=== PATIENT | male | born 1980 | race Caucasian/White ===

== ENCOUNTER 2019-01-09 22:31 | Emergency (ER) | payer BC ==
[~2019-01-09] VITALS: Ht 177.8 cm; Wt 90.7 kg
[2019-01-10] MEDS ORDERED: SILVER SULFADIAZINE 1% CREAM 50 GM TP ONE (00:30)
--- NOTE | 2019-01-10 00:30 | NUR ---
DR. COVARRUBIAS AT [facility].
--- NOTE | 2019-01-10 00:39 | NUR ---
Patient discharged to home in stable conditon. Written and verbal after care instructions given. Patient verbalizes understanding of instructions. PATIENT DISCHARGED WITH SATBLE GAIT.
[2019-01-10 00:40] VITALS: BP 145/87
[2019-01-10] MEDS ORDERED: SILVER SULFADIAZINE 1% CREAM 25 GM TUBE TP ONE (00:40)
== END 2019-01-10 00:40 | disposition home or self-care (01) ==
LOC: ER 22:36
DX: T21.21XA Burn of second degree of chest wall, initial encounter (principal); T22.212A Burn of second degree of left forearm, initial encounter; X10.2XXA Contact with fats and cooking oils, initial encounter; Y93.89 Activity, other specified; Y92.89 Other specified places as the place of occurrence of the external cause; Y99.8 Other external cause status
CPT/HCPCS: 16020; A4663